=== PATIENT | male | born 1995 | race Two or more races ===

== ENCOUNTER 2018-08-12 01:54 | Emergency (ER) | payer MEDICAID ==
[2018-08-12] VITALS (7 sets, daily range): BP systolic 102–146; BP diastolic 48–97
[~2018-08-12] VITALS: Ht 182.9 cm; Wt 72.6 kg
[~2018-08-12 01:54] MED LIST: UNOBMED
[2018-08-12] MEDS ORDERED: Haloperidol 5mg/ml Inj IM ONE (02:00)
[2018-08-12 02:48] LABS: BASOPHILS % (AUTO) 1.6 % (0.0-2.0); EOSINOPHILS % (AUTO) 0.6 % (0.0-3.0); HEMATOCRIT 43.8 % (42.0-52.0); MEAN CORPUSCULAR VOLUME 87 FL (80-99); NEUTROPHILS % (AUTO) 69.8 % (45.0-75.0); PLATELET COUNT 514 K/UL (150-450); RED BLOOD COUNT 5.03 M/UL (4.70-6.10); RED CELL DISTRIBUTION WIDTH 11.4 % (11.6-14.8); WHITE BLOOD COUNT 10.1 K/UL (4.8-10.8)
[2018-08-12 03:01] LABS: ANION GAP 8 mmol/L (5-15); BLOOD UREA NITROGEN 24 mg/dL (7-18); CALCIUM 9.3 MG/DL (8.5-10.1); CARBON DIOXIDE 28 MMOL/L (21-32); CHLORIDE 106 MMOL/L (98-107); CREATININE 1.3 MG/DL (0.55-1.30); SODIUM 142 MMOL/L (136-145)
[2018-08-12 03:05] LABS: ALANINE AMINOTRANSFERASE 34 U/L (12-78); ALBUMIN 3.7 G/DL (3.4-5.0); ALBUMIN/GLOBULIN RATIO 0.8 (1.0-2.7); ALKALINE PHOSPHATASE 103 U/L (46-116); ASPARTATE AMINO TRANSFERASE 29 U/L (15-37); BILIRUBIN,TOTAL 0.2 MG/DL (0.2-1.0)
--- NOTE | 2018-08-12 03:10 | Emergency Room Report ---
History of Present Illness General Chief Complaint: Behavioral Complaint Source: Patient, EMS Present Illness HPI Is a 22-year-old male with a psychiatric history and homelessness. Also history drugs abuse. He presents with chief complaint of suicidal thoughts. He came to his mother's house and she called 911. He told her that he was suicidal. No particular plan. Denies any drug use. Denies any alcohol use. He was agitated and had to be in restraint by police. Allergies: Coded Allergies: UNABLE TO ASSESS (Unverified , 08/12/18) Patient History Past Medical History: see triage record, old chart reviewed, psych hx Past Surgical History: none, other Family History: none Social History: other Immunizations: other Reviewed Nursing Documentation: PMH: Agreed; PSxH: Agreed Nursing Documentation-PMH Hx Seizures: Yes Review of Systems ENT: Denies: sore throat Cardiovascular: Denies: chest pain, palpitations Gastrointestinal/Abdominal: Denies: nausea, vomiting, diarrhea Musculoskeletal: Denies: back problems Skin: Denies: rash Psychiatric: Reports: prior hx Neurological: Denies: NAV[place], seizures All Other Systems: negative except mentioned in HPI Physical Exam Vital Signs Date Time Temp Pulse Resp B/P (MAP) Pulse Ox O2 Delivery O2 Flow Rate FiO2 08/12/18 01:39 Room Air 08/12/18 02:00 98.3 73 20 146/97 98 vitals normal Sp02 EP Interpretation: reviewed, normal General Appearance: alert/responsive, no apparent distress, non-toxic Head: normocephalic, atraumatic Eyes: PERRL, EOMI ENT: oropharynx normal Neck: supple/symm/no masses Respiratory: effort normal, no rhonchi, no wheezing Cardiovascular: no murmur, gallop, rub Gastrointestinal: non-tender, no mass, non-distended, no rebound/guarding, normal bowel sounds Musculoskeletal: gait & station normal Neurologic: oriented x3, sensory intact, motor strength/tone normal Suicide Risk Assessment: Suicidal Ideation: Yes Had intent to initiate attempt: No Pt's plan for suicide attempt: No Has means to complete attempt: No Skin: no rash, normal palpation Medical Decision Making Diagnostic Impression: Primary Impression: Acute psychosis Additional Impressions: Suicidal ideation Methamphetamine abuse ER Course Patient presents with acute psychosis and agitation secondary to drug abuse. He is suicidal but most likely secondary to drugs. He is placed on a 5150 hold by police. He is medically cleared. He received Haldol for sedation here since he was very aggressive and agitated. Lab Results Impression labs unremarkable Last Vital Signs Date Time Temp Pulse Resp B/P (MAP) Pulse Ox O2 Delivery O2 Flow Rate FiO2 08/12/18 02:00 98.3 73 20 146/97 98 Room Air Status: improved Disposition: XFER TO PSYCH HOSP/UNIT Condition: Stable Pradip Lizama MD Aug 12, 2018 03:10
[2018-08-12 03:11] LABS: BILIRUBIN, URINE NEGATIVE (NEGATIVE); GLUCOSE, URINE (UA) NEGATIVE (NEGATIVE); KETONES,URINE NEGATIVE (NEGATIVE); LEUKOCYTE ESTERASE ,URINE 1+ (NEGATIVE); NITRITE,URINE NEGATIVE (NEGATIVE); PH,URINE 6 (4.5-8.0); PROTEIN,URINE 2+ (NEGATIVE); UROBILINOGEN,URINE 1 MG/DL (0.0-1.0)
[2018-08-12 03:14] LABS: COLOR,URINE YELLOW
[2018-08-12 03:15] LABS: APPEARANCE,URINE CLEAR
== END 2018-08-12 15:41 ==
LOC: EDBD 01:54 → EMR 07:15
DX: F23 Brief psychotic disorder (principal); R45.851 Suicidal ideations; F15.10 Other stimulant abuse, uncomplicated; G40.909 Epilepsy, unspecified, not intractable, without status epilepticus
CPT/HCPCS: 36415; 80053; 80307; 80329; 81003; 85025; 96372; 99285; J1630